=== PATIENT | male | born 1975 ===

== ENCOUNTER 2017-08-27 14:21 | Inpatient (IN) | payer MEDICARE, OTHER ==
[2017-08-27 14:26] VITALS: BMI 22.8
[2017-08-27 14:27] VITALS: O2SAT 94
--- NOTE | 2017-08-27 14:30 | ED PDOC ---
Arrival/HPI - General Time Seen by Provider: 08/27/17 14:22 Historian: Patient - History of Present Illness Narrative History of Present Illness (Text): 08/27/17 14:20 Rashawn Almeida is a 42 year old male, who presents to the emergency department after being transferred for psych evaluation from another institution. Patient is currently denying any pain and no complaints have been made. Time/Duration: Prior to Arrival Symptom Onset: Sudden Symptom Course: Unchanged Past Medical History - Provider Review Nursing Documentation Reviewed: Yes Family/Social History - Physician Review Nursing Documentation Reviewed: Yes Family/Social History: Unknown Family HX Allergies/Home Meds Allergies/Adverse Reactions: Allergies benztropine [From Cogentin] Allergy (Verified 08/27/17 14:25) RASH haloperidol [From Haldol] Allergy (Verified 08/27/17 14:25) RASH Review of Systems - Review of Systems Constitutional: absent: Fevers Respiratory: absent: SOB, Cough Cardiovascular: absent: Chest Pain Gastrointestinal: absent: Abdominal Pain Neurological: absent: Headache Psychiatric: Other (psych evaluation ) Physical Exam Vital Signs Reviewed: Yes Vital Signs Temp Pulse Resp BP Pulse Ox 08/27/17 14:27 98.1 F 73 18 93/53 L 94 L Temperature: Afebrile Blood Pressure: Hypotensive Pulse: Regular Respiratory Rate: Normal Appearance: Positive for: Well-Appearing, Non-Toxic, Comfortable Pain Distress: None Mental Status: Positive for: Alert and Oriented X 3 - Systems Exam Head: Present: Atraumatic, Normocephalic Respiratory/Chest: Present: Clear to Auscultation, Good Air Exchange. No: Respiratory Distress, Accessory Muscle Use Cardiovascular: Present: Regular Rate and Rhythm, Normal S1, S2. No: Murmurs Abdomen: Present: Normal Bowel Sounds. No: Tenderness, Distention, Peritoneal Signs Neurological: Present: GCS=15, CN II-XII Intact, Speech Normal Skin: Present: Warm, Dry, Normal Color. No: Rashes Psychiatric: Present: Alert, Oriented x 3, Normal Insight, Normal Concentration Medical Decision Making ED Course and Treatment: 08/27/17 14:[address] Guevara from psych who has accepted patient for care and evaluation. - Medication Orders Current Medication Orders: Diphenhydramine HCl (Benadryl) 50 mg IM Q6H PRN PRN Reason: Agitation Diphenhydramine HCl (Benadryl) 50 mg PO Q6H PRN PRN Reason: Agitation Hydroxyzine Pamoate (Vistaril) 25 mg PO Q6H PRN; Protocol PRN Reason: Anxiety Lorazepam (Ativan) 2 mg PO 0000,0600,1200,1800 ANA PRN Reason: Protocol Risperidone (Risperdal Tab) 1 mg PO AMHS ANA PRN Reason: Protocol Trazodone HCl (Desyrel) 50 mg PO HS PRN PRN Reason: Insomnia Ziprasidone (Geodon Inj) 20 mg IM Q6H PRN; Protocol PRN Reason: Agitation Ziprasidone (Geodon Cap) 20 mg PO Q6H PRN; Protocol PRN Reason: Agitation - Scribe Statement The provider has reviewed the documentation as recorded by the Kia Ba Provider Scribe Attestation: All medical record entries made by the Scribe were at my direction and personally dictated by me. I have reviewed the chart and agree that the record accurately reflects my personal performance of the history, physical exam, medical decision making, and the department course for this patient. I have also personally directed, reviewed, and agree with the discharge instructions and disposition. Disposition/Present on Arrival - Present on Arrival Any Indicators Present on Arrival: No - Disposition Have Diagnosis and Disposition been Completed?: Yes Diagnosis: Depression, Schizophrenia Disposition: HOSPITALIZED Disposition Time: 02:00 Isolation: Airborne Condition: STABLE
[2017-08-27] MEDS ORDERED: DiphenhydrAMINE 50 mg/ml Inj IM PRN (17:08)
--- NOTE | 2017-08-27 18:49 | PCM.BM ---
<Anurag Sawyer - Last Filed: 08/27/17 18:49> Treatment Plan Problems - Problems identified on initial assessmt Hopelessness Date Initiated: 08/27/17 Time Initiated: 18:48 Assessment reference: NA Status: Active Priority: 1 Ineffective Coping Date Initiated: 08/27/17 Time Initiated: 18:48 Assessment reference: NA Status: Active Priority: 2 Auditory Hallucinations Date Initiated: 08/27/17 Time Initiated: 18:48 Assessment reference: NA Status: Active Priority: 3 High Risk: Suicide Date Initiated: 08/27/17 Time Initiated: 18:49 Assessment reference: NA Status: Active Priority: 4 Knowledge Deficit: Alcohol Use Date Initiated: 08/27/17 Time Initiated: 18:49 Assessment reference: NA Status: Active Priority: 5 Treatment assets and liabiliti Patient Assests: cooperative, ADL independent Patient Liabilities: substance abuse - Milieu Protocol Maintain good personal hygiene: daily Encourage regular showers, daily Remind patient to perform daily oral care Maintain personal safety: every shift Educate patient to report safety concerns to staff, every shift Monitor environment for contraband/sharps Medication safety: Monitor for expected outcome, potential side effects: every shift, Assess barriers to learning: every shift, Assess readiness for medication education: every shift Discharge/Continuing Care - Education Needs Education Needs: Patient Medication, Patient Diagnosis/Disease Process, Patient Coping Skills, Patient Aftercare Safety Plan - Discharge Discharge Criteria: Tolerates medication w/o severe side effects, Free of Suicidal thoughts, Normal sleep pattern, Ability to care for self, No longer exhibiting s/s of withdrawal, Reduction of target symptoms <Kay Engel - Last Filed: 08/28/17 08:37> - Diagnosis (1) Polysubstance abuse Status: Acute Interventions: 08/28/17 08:41 Monitoring withdrawal symptoms Medical detoxification Pharmacotherapy for alcohol/benzos/opioid dependence Maintaining sobriety Relapse prevention Possible rehabilitation Motivational interviewing 12-step programs: AA meetings (2) Antisocial personality disorder Status: Acute Interventions: 08/28/17 08:41 Psychoeducation Psychopharmacology/adjustment of medications as needed/ monitoring possible side effects Evaluate pt on daily basis Compliance with medications and follow up appointments Suicide and homicide risk assessment and prevention, coping strategies, safety plan Relapse prevention Family involvement As outpatient: Transference-focused psychotherapy/dialectical behavioral therapy /schema therapy Mindfulness skills (3) Schizophrenia Status: Acute Interventions: 08/28/17 08:41 Psychoeducation/psychotherapy Psychopharmacology/adjustment of medications as needed/ monitoring possible side effects Evaluate pt on daily basis Compliance with medications and follow up appointments Long acting medication if pt is noncompliant with pill form Suicide and homicide risk assessment and prevention, coping strategies, safety plan Relapse prevention Reduction of symptoms Improve functional status Possible assertive community treatment Cognitive behavioral therapy Family involvement Possible social skill training as outpatient <Liz Airza - Last Filed: 08/29/17 14:31>
[2017-08-28 06:46] VITALS: TEMP 97.6
[2017-08-28 08:57] LABS: CHOLESTEROL 179 mg/dL (130-200); GLUCOSE,FASTING 93 mg/dL (65-110)
[2017-08-28 09:15] LABS: FREE T4 0.71 ng/dL (0.78-2.19)
[2017-08-28 09:29] LABS: THYROID STIMULATING HORMONE 1.13 mIU/mL (0.46-4.68)
[2017-08-28 11:30] LABS: BASO # 0.02 K/mm3 (0.0-2.0); BASO % 0.4 % (0.0-3.0); EOS # 0.1 (0.0-0.7); EOS % 1.9 % (1.5-5.0); GRAN # 3.16 (1.4-6.5); GRAN % 58.7 % (50.0-68.0); HEMATOCRIT 43.7 % (42.0-52.0); LYMPH # 1.6 (1.2-3.4); LYMPH % 28.8 % (22.0-35.0); MEAN CELL VOLUME 93.2 fl (80.0-105.0); MEAN CORPUSCULAR HEMOGLOBIN 32.2 pg (25.0-35.0); MEAN CORPUSCULAR HGB CONC 34.6 g/dl (31.0-37.0); MEAN PLATELET VOLUME 9.9 fl (7.0-11.0); MONO # 0.6 (0.1-0.6); MONO % 10.2 % (1.0-6.0); RED CELL DISTRIBUTION WIDTH 12.9 % (11.5-14.5); WHITE BLOOD COUNT 5.4 10^3/ul (4.5-11.0)
[2017-08-28 11:37] LABS: ALB/GLOB RATIO 1.7 (1.1-1.8); ALKALINE PHOSPHATASE 68 U/L (38-126); ALT/SGPT 41 U/L (7-56); AST/SGOT 41 U/L (17-59); BILIRUBIN,TOTAL 1.2 mg/dL (0.2-1.3); BLOOD UREA NITROGEN 16 mg/dL (7-21); CALCIUM 9.4 mg/dL (8.4-10.5); CARBON DIOXIDE 26 mmol/L (21-33); CHLORIDE 102 mmol/L (98-107); GFR AFRICAN-AMERICAN > 60; GLUCOSE,RANDOM 93 mg/dL (70-110); PHOSPHOROUS 3.3 mg/dL (2.5-4.5); POTASSIUM 4.1 mmol/L (3.6-5.0); SODIUM 137 mmol/L (132-148); TOTAL PROTEIN 6.7 g/dL (5.8-8.3)
--- NOTE | 2017-08-28 11:46 | CP.PCM.CON ---
<Ketan Gil - Last Filed: 08/28/17 14:49> History of Present Illness - History of Present Illness History of Present Illness: 42 year old male with Past medical history of schizophrenia who presented to the ED after being transferred from another institution. Patient is here for a psychiatric evaluation. The patient states he was initially brought to the hospital because he was drinking alcohol and was hearing voices. He doesn't recall anything else and he is currently very sleepy, unable to obtain more detailed history. He denies any CP, SOB, abdominal pain, change in vision, fever , nausea, vomiting, or any other complaints. Past Medical History: Schizophrenia, diagnosed over 10 years ago Past Surgery: none Significant Allergies: cogentin, haldol (patient states he gets paralyzed) Social: admits to occasional heavy alcohol use, Heavy Smoker > 10 Cigarettes Daily, illicit drug use in the past Family Hx; none significant Medications: zyprexa 5mg, zyprexa 2mg Review of Systems - Constitutional Constitutional: absent: Anorexia, Chills, Excessive Sweating, Fever, Headache, Sleep Apnea - EENT Eyes: absent: Blurred Vision, Change in Vision Ears: absent: Decreased Hearing, Ear Discharge, Disequilibrium, Dizziness Nose/Mouth/Throat: absent: Nasal Congestion, Nasal Discharge, Dry Mouth, Dysphagia, Sore Throat - Cardiovascular Cardiovascular: absent: Chest Pain, Dyspnea - Respiratory Respiratory: absent: Dyspnea, Chest Congestion - Gastrointestinal Gastrointestinal: absent: Abdominal Pain - Genitourinary Genitourinary: absent: Difficulty Urinating - Musculoskeletal Musculoskeletal: absent: Arthralgias, Muscle Weakness, Numbness, Tingling - Integumentary Integumentary: absent: Lesions - Neurological Neurological: Abnormal Hearing. absent: Disequilibrium, Dizziness, Numbness, Tingling, Tremor, Weakness - Psychiatric Psychiatric: absent: Depression - Endocrine Endocrine: absent: Excessive Sweating Past Patient History - Past Social History Smoking Status: Heavy Smoker > 10 Cigarettes Daily - PSYCHIATRIC Hx Substance Use: Yes Meds Allergies/Adverse Reactions: Allergies Allergy/AdvReac Type Severity Reaction Status Date / Time benztropine [From Cogentin] Allergy RASH Verified 08/27/17 14:25 haloperidol [From Haldol] Allergy RASH Verified 08/27/17 14:25 - Medications Medications: Current Medications Diphenhydramine HCl (Benadryl) 50 mg IM Q6H PRN PRN Reason: Agitation Diphenhydramine HCl (Benadryl) 50 mg PO Q6H PRN PRN Reason: Agitation Hydroxyzine Pamoate (Vistaril) 25 mg PO Q6H PRN; Protocol PRN Reason: Anxiety Lorazepam (Ativan) 2 mg PO 0000,0600,1200,1800 ANA PRN Reason: Protocol Last Admin: 08/28/17 07:02 Dose: 2 mg Risperidone (Risperdal Tab) 1 mg PO AMHS ANA PRN Reason: Protocol Last Admin: 08/28/17 09:38 Dose: 1 mg Trazodone HCl (Desyrel) 50 mg PO HS PRN PRN Reason: Insomnia Ziprasidone (Geodon Inj) 20 mg IM Q6H PRN; Protocol PRN Reason: Agitation Ziprasidone (Geodon Cap) 20 mg PO Q6H PRN; Protocol PRN Reason: Agitation Physical Exam - Constitutional Appears: Non-toxic, No Acute Distress - Head Exam Head Exam: ATRAUMATIC, NORMAL INSPECTION, NORMOCEPHALIC - Eye Exam Eye Exam: EOMI, Normal appearance, PERRL Pupil Exam: NORMAL ACCOMODATION, PERRL - ENT Exam ENT Exam: Mucous Membranes Dry - Neck Exam Neck exam: Positive for: Normal Inspection. Negative for: Lymphadenopathy - Respiratory Exam Respiratory Exam: Clear to Auscultation Bilateral, NORMAL BREATHING PATTERN - Cardiovascular Exam Cardiovascular Exam: REGULAR RHYTHM, +S1, +S2 - GI/Abdominal Exam GI & Abdominal Exam: Normal Bowel Sounds. absent: Distended, Rigid, Tenderness - Extremities Exam Extremities exam: Positive for: full ROM, normal inspection, pedal pulses present - Back Exam Back exam: NORMAL INSPECTION - Neurological Exam Neurological exam: Oriented x3 Additional comments: Lethargic, sleepy - Skin Skin Exam: Normal Color, Warm Results - Vital Signs Recent Vital Signs: Last Vital Signs Temp 97.6 F 08/28/17 06:45 Pulse 71 08/28/17 06:45 Resp 20 08/28/17 06:45 BP 108/61 08/28/17 06:45 Pulse Ox 94 L 08/27/17 16:30 - Labs Result Diagrams: 08/28/17 07:30 08/28/17 07:30 Labs: Laboratory Results - last 24 hr 08/28/17 08/28/17 08/28/17 07:30 07:30 08:15 WBC 5.4 RBC 4.69 Hgb 15.1 Hct 43.7 MCV 93.2 MCH 32.2 MCHC 34.6 RDW 12.9 Plt Count 215 MPV 9.9 Gran % 58.7 Lymph % (Auto) 28.8 Fallon % (Auto) 10.2 H Eos % (Auto) 1.9 Baso % (Auto) 0.4 Gran # 3.16 Lymph # 1.6 Fallon # 0.6 Eos # 0.1 Baso # 0.02 Sodium 137 Potassium 4.1 Chloride 102 Carbon Dioxide 26 Anion Gap 13 BUN 16 Creatinine 1.1 Est GFR ( Amer) > 60 Est GFR (Non-Af Amer) > 60 Random Glucose 93 Fasting Glucose 93 Calcium 9.4 Phosphorus 3.3 Magnesium 2.0 Total Bilirubin 1.2 AST 41 ALT 41 Alkaline Phosphatase 68 Total Protein 6.7 Albumin 4.2 Globulin 2.5 Albumin/Globulin Ratio 1.7 Triglycerides 102 Cholesterol 179 LDL Cholesterol Direct 110 HDL Cholesterol 55 Free T4 TSH 3rd Generation 08/28/17 08:15 WBC RBC Hgb Hct MCV MCH MCHC RDW Plt Count MPV Gran % Lymph % (Auto) Fallon % (Auto) Eos % (Auto) Baso % (Auto) Gran # Lymph # Fallon # Eos # Baso # Sodium Potassium Chloride Carbon Dioxide Anion Gap BUN Creatinine Est GFR ( Amer) Est GFR (Non-Af Amer) Random Glucose Fasting Glucose Calcium Phosphorus Magnesium Total Bilirubin AST ALT Alkaline Phosphatase Total Protein Albumin Globulin Albumin/Globulin Ratio Triglycerides Cholesterol LDL Cholesterol Direct HDL Cholesterol Free T4 0.71 L TSH 3rd Generation 1.13 Assessment & Plan - Assessment and Plan (Free Text) Assessment: 42 year old male with Past medical history of schizophrenia who presented to the ED after being transferred from another institution. Patient is here for a psychiatric evaluation. The patient states he was initially brought to the hospital because he was drinking alcohol and was hearing voices. He is being evaluated by psychiatry and consulted by medicine. Plan: 1. Schizophrenia-chronic -will defer to psychiatry -currently on geodon, trazadone, ativan, diphenhydramine, hydroxyzine -Psych: Dr. Villanueva 2. Recent Alcohol abuse -CBC, BMP ordered : no electrolyte abnormalities present -[facility] protocol -Alcohol counseling offered -monitor labs 3. GI/DVT prophylaxis -Pantoprazole -Heparin Patient can be signed off to psychiatry, discussed with the attending Dr. dawson <Vicki Dawson - Last Filed: 08/28/17 17:27> Meds - Medications Medications: Current Medications Diphenhydramine HCl (Benadryl) 50 mg IM Q6H PRN PRN Reason: Agitation Diphenhydramine HCl (Benadryl) 50 mg PO Q6H PRN PRN Reason: Agitation Folic Acid (Folic Acid) 1 mg PO DAILY ANA Heparin Sodium (Porcine) (Heparin) 5,000 units SC Q12 ANA PRN Reason: Protocol Hydroxyzine Pamoate (Vistaril) 25 mg PO Q6H PRN; Protocol PRN Reason: Anxiety Lorazepam (Ativan) 2 mg PO 0000,0600,1200,1800 ANA PRN Reason: Protocol Last Admin: 08/28/17 07:02 Dose: 2 mg Multivitamins/Minerals (Therapeutic-M Tab) 1 tab PO DAILY ANA Olanzapine (Zyprexa Zydis) 5 mg PO HS ANA PRN Reason: Protocol Pantoprazole Sodium (Protonix Ec Tab) 40 mg PO 0600 ANA Thiamine HCl (Vitamin B1 Tab) 100 mg PO DAILY ANA Trazodone HCl (Desyrel) 50 mg PO HS PRN PRN Reason: Insomnia Ziprasidone (Geodon Inj) 20 mg IM Q6H PRN; Protocol PRN Reason: Agitation Ziprasidone (Geodon Cap) 20 mg PO Q6H PRN; Protocol PRN Reason: Agitation Results - Vital Signs Recent Vital Signs: Last Vital Signs Temp 97.6 F 08/28/17 06:45 Pulse 75 08/28/17 16:00 Resp 20 08/28/17 06:45 BP 111/68 08/28/17 16:00 Pulse Ox 94 L 08/27/17 16:30 - Labs Result Diagrams: 08/28/17 07:30 08/28/17 07:30 Labs: Laboratory Results - last 24 hr 08/28/17 08/28/17 08/28/17 07:30 07:30 08:15 WBC 5.4 RBC 4.69 Hgb 15.1 Hct 43.7 MCV 93.2 MCH 32.2 MCHC 34.6 RDW 12.9 Plt Count 215 MPV 9.9 Gran % 58.7 Lymph % (Auto) 28.8 Fallon % (Auto) 10.2 H Eos % (Auto) 1.9 Baso % (Auto) 0.4 Gran # 3.16 Lymph # 1.6 Fallon # 0.6 Eos # 0.1 Baso # 0.02 Sodium 137 Potassium 4.1 Chloride 102 Carbon Dioxide 26 Anion Gap 13 BUN 16 Creatinine 1.1 Est GFR ( Amer) > 60 Est GFR (Non-Af Amer) > 60 Random Glucose 93 Fasting Glucose 93 Calcium 9.4 Phosphorus 3.3 Magnesium 2.0 Total Bilirubin 1.2 AST 41 ALT 41 Alkaline Phosphatase 68 Total Protein 6.7 Albumin 4.2 Globulin 2.5 Albumin/Globulin Ratio 1.7 Triglycerides 102 Cholesterol 179 LDL Cholesterol Direct 110 HDL Cholesterol 55 Free T4 TSH 3rd Generation 08/28/17 08:15 WBC RBC Hgb Hct MCV MCH MCHC RDW Plt Count MPV Gran % Lymph % (Auto) Fallon % (Auto) Eos % (Auto) Baso % (Auto) Gran # Lymph # Fallon # Eos # Baso # Sodium Potassium Chloride Carbon Dioxide Anion Gap BUN Creatinine Est GFR ( Amer) Est GFR (Non-Af Amer) Random Glucose Fasting Glucose Calcium Phosphorus Magnesium Total Bilirubin AST ALT Alkaline Phosphatase Total Protein Albumin Globulin Albumin/Globulin Ratio Triglycerides Cholesterol LDL Cholesterol Direct HDL Cholesterol Free T4 0.71 L TSH 3rd Generation 1.13 Attending/Attestation - Attestation I have personally seen and examined this patient.: Yes I have fully participated in the care of the patient.: Yes I have reviewed all pertinent clinical information: Yes Notes (Text): I have seen and examined the patient at bedside. Agree with the above note with the following additions/ exceptions: Briefly this is 42 year old male with history of schizophrenia and recent alcohol use who presented for evaluation of auditory hallucinations. Patient is talking minimally and in a very low tone. Denies any complaints. Reviewed blood work which is within normal limits. Alcohol cessation counselling was started however I felt that patient was not paying attention. Thanks for providing us the opportunity to participate in the patient care. Will sign off at this time. Please reconsult susann. Vicki Dawson
--- NOTE | 2017-08-28 16:59 | PCM.PSYCH ---
Initial Psychiatric Evaluation - Initial Psychiatric Evaluation Type of Admission: Voluntary Legal Status: Capacity (patient has capacity to sign consent for treatment) Chief Complaint (in patient's own words): "I do not care about anything" Patient's Reaction to Hospitalization: patient was transferred from [facility] for evaluation of psychotic symptoms, command type hallucinations, suicidal ideation with a plan to jump off the bridge,patient is substance abuser, cocaine use disorder, was noncompliant with the medications. History of Present Illness and Precipitating Events: Shortly patient is 50 year old male, reported history of schizophrenia , patient came to the [facility] complaining of auditory hallucinations, command type, telling patient to jump off the bridge, patient also admitted to use cocaine, was not compliant with the psychotropic medication for past 2 months, was not able to contract for safety. Due to the severity of patients symptoms and, suicidal ideation, disorganized behavior, pt could not be maintained as outpatient setting, needs further evaluation and stabilization in acute psychiatric unit. Stress: pt lost his job Personal hygiene poor, ADLS: acceptable. Psychosis: patient reported to hear voices, type telling him to kill himself by jumping off the bridge. Depression: patient reported being depressed, hopeless helpless, worthless and guilty. Suicidal thoughts/plans/intent: pt contracted for safety Trena: irritability is very obvious. pt presented to be withdrawn, sedated with psychomotor retardation. Substance abuse: patient has alcohol use disorder, alcohol level was more than 200 at [facility], urine drug screen was positive for cocaine. Alcohol Smoking: counseling provided, nicotine patch offered Smoking Cessation Counseling: The patient was counseled as to the multiple risks to his/her health from continued use of tobacco products. It was explained that continuing to smoke may lead to multiple short and terminal carman negative health consequences, including but not limited to mouth/esophageal /lung cancer, COPD, and heart disease. He/she states he/she understands these risks, and also understands the options and resources available to him/her to help him/her stop smoking. Nicotine replacement therapy, local hotlines, and local resources were discussed as viable options for helping him/her stop his/her tobacco use. The total time spent counseling the patient regarding tobacco cessation was 3 minutes Access to the weapons: as per [facility] report pt said "Having a licence for a gun", when was asked about it, pt seems to be surprised, said "me? gun?, no I don't have any guns". Past psychiatric h/o: , medication noncompliance, terroristic threats, possible antisocial traits. pt was on zyprexa 10mg po bid, zoloft 200mg daily, trazodone 50mg hs. prior h/o incarcerations, strong antisocial traits. Hospitalization: Suicidal attempts: self reported history of suicidal attempts by laceration of wrist, but no old scars for noted at this time. Medical h/o: Family h/o: grandmother has h/o mental illness, male cousin committed suicide by hanging. Social h/o: Treatment goals: Labs: 08/28/17 08/28/17 08:15 08:15 Fasting Glucose 93 Triglycerides 102 Cholesterol 179 LDL Cholesterol Direct 110 HDL Cholesterol 55 Free T4 0.71 L TSH 3rd Generation 1.13 Vital Signs Temp Pulse Resp BP Pulse Ox 08/28/17 06:45 97.6 F 71 20 108/61 08/27/17 16:30 98.3 F 75 18 93/60 L 94 L 08/27/17 14:27 98.1 F 73 18 93/53 L 94 L Review of Systems: medical consult called. MSE: Pt deemed to be unreliable historian, some psychomotor retardation, pt looks stated age, good poor hygiene, good ADLs, speech was: underproductive, yes or no answers only, eye contact: pt was looking on the floor, mood described: "I don't know" , affect:flat , thought process: concrete, thought content: pt contracted for safety, prior to come to the hospital pt verbalized SI/ HI, pt reported auditory hallucinations, denied paranoid ideation, insight/judgment: poor, impulsed are unpredictable. as per staff pt is withdrawn, not attending groups Impression: s per history patient has schizophrenia rule out schizoaffective disorder Alcohol use disorder cocaine use disorder Treatment plan: Milieu/structure/supportive therapy Medical consult was called meds for possible alcohol withdrawals (atvan scheduled and prn, mvi, thiamine and folic acid) trazodone 50 mg at the nighttime as needed for insomnia as well as depression Risperdal will be d/c zyprexa will be resumed (pt willing to take this medication only) vistaril and benadryl for possible EPS PRN meds (Geodon and Benadryl for agitation) consultation for discharge plan and social issues Family involvement Follow up on labs Will monitor closely SW evaluation for d/c planning, pt wants to go to rehab Pt was educated about risk/benefits and alternatives of medications, coping strategies (safety plan, suicide prevention), relapse prevention, importance of follow up with psychiatrist and therapist, stay away from drugs/alcohol/smoking Current Medications: Active Medications Generic Name Dose Route Start Last Admin Trade Name Freq PRN Reason Stop Dose Admin Diphenhydramine HCl 50 mg 08/27/17 17:08 Benadryl IM Q6H PRN Agitation Diphenhydramine HCl 50 mg 08/27/17 17:08 Benadryl PO Q6H PRN Agitation Hydroxyzine Pamoate 25 mg 08/27/17 16:18 Vistaril PO Q6H PRN Anxiety Protocol Lorazepam 2 mg 08/27/17 18:00 08/28/17 07:02 Ativan PO 2 mg 0000,0600,1200,1800 ANA Administration Protocol Risperidone 1 mg 08/27/17 22:00 08/28/17 09:38 Risperdal Tab PO 1 mg AMHS ANA Administration Protocol Trazodone HCl 50 mg 08/27/17 16:18 Desyrel PO HS PRN Insomnia Ziprasidone 20 mg 08/27/17 17:08 Geodon Inj IM Q6H PRN Agitation Protocol Ziprasidone 20 mg 08/27/17 17:08 Geodon Cap PO Q6H PRN Agitation Protocol Past Psychiatric History - Past Psychiatric History Pertinent Medical Hx (Current Medical&Sleep Prob, Allergies): Allergies Allergy/AdvReac Type Severity Reaction Status Date / Time benztropine [From Cogentin] Allergy RASH Verified 08/27/17 14:25 haloperidol [From Haldol] Allergy RASH Verified 08/27/17 14:25 DSM 5 DX - Recommended/Plan of Treatment Projected ELOS: 7days Prognosis: guarded Discharge Plan and Discharge Criteria: Pt will be not depressed or manic, will be more hopeful, will be not psychotic or anxious, will be not having thoughts of harming self or others, will be tolerating medications well, will not have major side effects, will be able to function, will not pose threat to self or others.
[2017-08-28] MEDS ORDERED: OLANZapine 5 mg Disintegrating Tab PO SCH (22:00)
[2017-08-29] MEDS: Pantoprazole 40 mg EC Tab PO SCH (06:48)
[2017-08-29 06:59] VITALS: RESP 18
[2017-08-29] MEDS: Multivitamin With Minerals Tab PO SCH (08:28)
--- NOTE | 2017-08-29 16:05 | PCM.PYCHPN ---
Psychiatric Progress Note - Psychiatric Progress Note Patient seen today, length of contact: 30min Patient Chief Complaint: "I want to go to the rehab" Diagnostic Results: 08/28/17 07:30 08/28/17 07:30 Lab Results 08/28/17 08:15: RPR Nonreactive 08/28/17 08:15: Free T4 0.71 L, TSH 3rd Generation 1.13 08/28/17 08:15: Fasting Glucose 93, Triglycerides 102, Cholesterol 179, LDL Cholesterol Direct 110, HDL Cholesterol 55 08/28/17 07:30: Sodium 137, Potassium 4.1, Chloride 102, Carbon Dioxide 26, Anion Gap 13, BUN 16, Creatinine 1.1, Est GFR ( Amer) > 60, Est GFR (Non- Af Amer) > 60, Random Glucose 93, Calcium 9.4, Phosphorus 3.3, Magnesium 2.0, Total Bilirubin 1.2, AST 41, ALT 41, Alkaline Phosphatase 68, Total Protein 6.7 , Albumin 4.2, Globulin 2.5, Albumin/Globulin Ratio 1.7 08/28/17 07:30: WBC 5.4, RBC 4.69, Hgb 15.1, Hct 43.7, MCV 93.2, MCH 32.2, MCHC 34.6, RDW 12.9, Plt Count 215, MPV 9.9, Gran % 58.7, Lymph % (Auto) 28.8, [place] % (Auto) 10.2 H, Eos % (Auto) 1.9, Baso % (Auto) 0.4, Gran # 3.16, Lymph # 1.6, [place] # 0.6, Eos # 0.1, Baso # 0.02 Vital Signs Temp Pulse Resp BP Pulse Ox 08/29/17 06:58 67 18 110/67 08/28/17 16:00 75 111/68 08/28/17 06:45 97.6 F 71 20 108/61 08/27/17 16:30 98.3 F 75 18 93/60 L 94 L 08/27/17 14:27 98.1 F 73 18 93/53 L 94 L DSM 5 Symptoms Update: Shortly patient is 50 year old male, reported history of schizophrenia , patient came to the [facility] complaining of auditory hallucinations, command type, telling patient to jump off the bridge, patient also admitted to use cocaine, was not compliant with the psychotropic medication for past 2 months, was not able to contract for safety. Personal hygiene poor, ADLS: acceptable. Psychosis: patient reported to hear voices, type telling him to kill himself by jumping off the bridge. pt is obviously has psychomotor retardation, very poor historian, was mumbling something. patient reported being depressed, hopeless helpless, worthless and guilty. as per staff pt wondering at the unit like empty minded, disorganized. pt asked staff to page this copywriter, when this copywriter asked pt if he wants to talk, pt said "no I want to talk WITH the phone". MSE: Pt deemed to be unreliable historian, some psychomotor retardation, pt looks stated age, good poor hygiene, good ADLs, speech was: underproductive, yes or no answers only, eye contact: pt was looking on the floor, mood described: "I don't know" , affect:flat , thought process: concrete, thought content: pt contracted for safety, prior to come to the hospital pt verbalized SI/ HI, pt reported auditory hallucinations, denied paranoid ideation, insight/judgment: poor, impulsed are unpredictable. Impression: s per history patient has schizophrenia rule out schizoaffective disorder Alcohol use disorder cocaine use disorder Treatment plan: Milieu/structure/supportive therapy Medical consult was called meds for possible alcohol withdrawals (atvan scheduled and prn, mvi, thiamine and folic acid) trazodone 50 mg at the nighttime as needed for insomnia as well as depression zyprexa will be increased 5mg amhs for psychosis vistaril and benadryl for possible EPS PRN meds (Geodon and Benadryl for agitation) consultation for discharge plan and social issues pt submitted 48hr notice will call [facility] Family involvement Follow up on labs Will monitor closely evaluation for d/c planning, pt wants to go to rehab Pt was educated about risk/benefits and alternatives of medications, coping strategies (safety plan, suicide prevention), relapse prevention, importance of follow up with psychiatrist and therapist, stay away from drugs/alcohol/smoking Medication Change: Yes (zyprexa increaed) Medical Record Reviewed: Yes Consults ordered or reviewed: medical consult appreciated Goal/Treatment Plan - Goal/Treatment Plan Need for Continued Stay: Remain at risks for inpatient hospitalization, Severe depression anxiety, Discharge may exacerbated symptoms, Severe functional impairment Estimated Date of D/C: 09/03/17
[2017-08-29] MEDS: OLANZapine 5 mg Disintegrating Tab PO SCH (21:23)
[2017-08-30] MEDS: Pantoprazole 40 mg EC Tab PO SCH (05:49)
[2017-08-30] MEDS: Multivitamin With Minerals Tab PO SCH (08:31)
[2017-08-30] MEDS: OLANZapine 5 mg Disintegrating Tab PO SCH ×2 (10:00→21:06)
--- NOTE | 2017-08-30 10:58 | CP.PCM.CON ---
<Ketan Gil - Last Filed: 08/30/17 13:39> History of Present Illness - History of Present Illness History of Present Illness: 42 year old male with Past medical history of schizophrenia who intially presented to the ED after being transferred from another institution. Patient is here for a psychiatric evaluation. The patient states he was initially brought to the hospital because he was drinking alcohol and was hearing voices. He didn't recall anything else. He is being seen by medicine due to the incident of sexual intercourse with a fellow patient in psychiatry. Patient was seen but currently very drowsy and difficult to obtain a detailed account of what happened. Patient denies sexual intercourse and says he just kissed the other patient. He denies any CP, SOB, abdominal pain, change in vision, fever, nausea, vomiting, or any other complaints. Past Medical History: Schizophrenia, diagnosed over 10 years ago Past Surgery: none Significant Allergies: cogentin, haldol (patient states he gets paralyzed) Social: admits to occasional heavy alcohol use, Heavy Smoker > 10 Cigarettes Daily, illicit drug use in the past Family Hx; none significant Medications: zyprexa 5mg, zyprexa 2mg at home Review of Systems - Constitutional Constitutional: absent: Anorexia, Chills, Fever - EENT Eyes: absent: Blurred Vision, Change in Vision Ears: absent: Abnormal Hearing Nose/Mouth/Throat: absent: Nasal Congestion, Sore Throat - Cardiovascular Cardiovascular: absent: Chest Pain, Dyspnea - Respiratory Respiratory: absent: Cough, Dyspnea, Dyspnea on Exertion, Chest Congestion - Gastrointestinal Gastrointestinal: absent: Diarrhea, Loose Stools, Nausea, Vomiting - Genitourinary Genitourinary: absent: Change in Urinary Stream, Difficulty Urinating, Dysuria - Integumentary Integumentary: absent: Pruritus, Rash, Sores - Neurological Neurological: absent: Abnormal Hearing, Numbness, Radicular Pain, Tingling, Weakness Past Patient History - Past Social History Smoking Status: Heavy Smoker > 10 Cigarettes Daily - PSYCHIATRIC Hx Substance Use: Yes Meds Allergies/Adverse Reactions: Allergies Allergy/AdvReac Type Severity Reaction Status Date / Time benztropine [From Cogentin] Allergy RASH Verified 08/27/17 14:25 haloperidol [From Haldol] Allergy RASH Verified 08/27/17 14:25 - Medications Medications: Current Medications Diphenhydramine HCl (Benadryl) 50 mg IM Q6H PRN PRN Reason: Agitation Diphenhydramine HCl (Benadryl) 50 mg PO Q6H PRN PRN Reason: Agitation Last Admin: 08/29/17 03:15 Dose: 50 mg Folic Acid (Folic Acid) 1 mg PO DAILY [facility] Last Admin: 08/30/17 08:31 Dose: 1 mg Heparin Sodium (Porcine) (Heparin) 5,000 units SC Q12 [facility] PRN Reason: Protocol Last Admin: 08/29/17 17:04 Dose: Not Given Hydroxyzine Pamoate (Vistaril) 25 mg PO Q6H PRN; Protocol PRN Reason: Anxiety Lorazepam (Ativan) 2 mg PO TID [facility] PRN Reason: Protocol Last Admin: 08/30/17 08:31 Dose: 2 mg Multivitamins/Minerals (Therapeutic-M Tab) 1 tab PO DAILY [facility] Last Admin: 08/30/17 08:31 Dose: 1 tab Nicotine (Nicoderm Cq) 1 patch TD DAILY [facility] Last Admin: 08/30/17 08:30 Dose: 1 patch Olanzapine (Zyprexa Zydis) 5 mg PO AMHS [facility] PRN Reason: Protocol Last Admin: 08/29/17 21:23 Dose: 5 mg Pantoprazole Sodium (Protonix Ec Tab) 40 mg PO 0600 [facility] Last Admin: 08/30/17 05:49 Dose: 40 mg Thiamine HCl (Vitamin B1 Tab) 100 mg PO DAILY [facility] Last Admin: 08/30/17 08:30 Dose: 100 mg Trazodone HCl (Desyrel) 50 mg PO HS PRN PRN Reason: Insomnia Ziprasidone (Geodon Inj) 20 mg IM Q6H PRN; Protocol PRN Reason: Agitation Ziprasidone (Geodon Cap) 20 mg PO Q6H PRN; Protocol PRN Reason: Agitation Physical Exam - Constitutional Appears: No Acute Distress Additional comments: drowsy - Head Exam Head Exam: ATRAUMATIC, NORMAL INSPECTION, NORMOCEPHALIC - Eye Exam Eye Exam: EOMI, Normal appearance, PERRL Pupil Exam: NORMAL ACCOMODATION, PERRL - ENT Exam ENT Exam: Normal Exam - Neck Exam Neck exam: Positive for: Normal Inspection. Negative for: Lymphadenopathy - Respiratory Exam Respiratory Exam: Clear to Auscultation Bilateral, NORMAL BREATHING PATTERN - Cardiovascular Exam Cardiovascular Exam: REGULAR RHYTHM, +S1, +S2 - GI/Abdominal Exam GI & Abdominal Exam: Normal Bowel Sounds. absent: Guarding, Soft - Extremities Exam Extremities exam: Positive for: normal inspection, pedal pulses present - Neurological Exam Neurological exam: Oriented x3 - Psychiatric Exam Psychiatric exam: Flat Affect - Skin Skin Exam: Normal Color, Warm Results - Vital Signs Recent Vital Signs: Last Vital Signs Temp 97.6 F 08/28/17 06:45 Pulse 73 08/29/17 16:00 Resp 18 08/29/17 06:58 BP 116/75 08/29/17 16:00 Pulse Ox 94 L 08/27/17 16:30 - Labs Result Diagrams: 08/28/17 07:30 08/28/17 07:30 Assessment & Plan - Assessment and Plan (Free Text) Assessment: 42 year old male with Past medical history of schizophrenia who presented to the ED after being transferred from another institution. Patient is here for a psychiatric evaluation. The patient states he was initially brought to the hospital because he was drinking alcohol and was hearing voices. He is being evaluated by psychiatry and consulted by medicine due to incidence of sexual intercourse with fellow patient. Plan: 1. Schizophrenia-chronic -will defer to psychiatry -currently on geodon, trazadone, ativan, diphenhydramine, hydroxyzine , zyprexa -Psych: Dr. Villanueva 2. Sexual [place] with fellow patient -Hep panel ordered and negative -HIV testing ordered 3. Recent Alcohol abuse -CBC, BMP ordered : no electrolyte abnormalities present -[facility] protocol -Alcohol counseling offered -continue to monitor labs 4. GI/DVT prophylaxis -Pantoprazole -Heparin <Vicki Song - Last Filed: 08/30/17 15:10> Meds - Medications Medications: Current Medications Diphenhydramine HCl (Benadryl) 50 mg IM Q6H PRN PRN Reason: Agitation Diphenhydramine HCl (Benadryl) 50 mg PO Q6H PRN PRN Reason: Agitation Last Admin: 08/29/17 03:15 Dose: 50 mg Folic Acid (Folic Acid) 1 mg PO DAILY [facility] Last Admin: 08/30/17 08:31 Dose: 1 mg Heparin Sodium (Porcine) (Heparin) 5,000 units SC Q12 [facility] PRN Reason: Protocol Last Admin: 08/29/17 17:04 Dose: Not Given Hydroxyzine Pamoate (Vistaril) 25 mg PO Q6H PRN; Protocol PRN Reason: Anxiety Lorazepam (Ativan) 2 mg PO TID [facility] PRN Reason: Protocol Last Admin: 08/30/17 13:39 Dose: Not Given Multivitamins/Minerals (Therapeutic-M Tab) 1 tab PO DAILY [facility] Last Admin: 08/30/17 08:31 Dose: 1 tab Nicotine (Nicoderm Cq) 1 patch TD DAILY [facility] Last Admin: 08/30/17 08:30 Dose: 1 patch Olanzapine (Zyprexa Zydis) 5 mg PO AMHS [facility] PRN Reason: Protocol Last Admin: 08/29/17 21:23 Dose: 5 mg Pantoprazole Sodium (Protonix Ec Tab) 40 mg PO 0600 [facility] Last Admin: 08/30/17 05:49 Dose: 40 mg Thiamine HCl (Vitamin B1 Tab) 100 mg PO DAILY [facility] Last Admin: 08/30/17 08:30 Dose: 100 mg Trazodone HCl (Desyrel) 50 mg PO HS PRN PRN Reason: Insomnia Ziprasidone (Geodon Inj) 20 mg IM Q6H PRN; Protocol PRN Reason: Agitation Ziprasidone (Geodon Cap) 20 mg PO Q6H PRN; Protocol PRN Reason: Agitation Results - Vital Signs Recent Vital Signs: Last Vital Signs Temp 97.6 F 08/28/17 06:45 Pulse 73 08/29/17 16:00 Resp 18 08/29/17 06:58 BP 116/75 08/29/17 16:00 Pulse Ox 94 L 08/27/17 16:30 - Labs Result Diagrams: 08/28/17 07:30 08/28/17 07:30 Labs: Laboratory Results - last 24 hr 08/30/17 09:10 Hepatitis A IgM Ab Negative Hep Bs Antigen Negative Hep B Core IgM Ab Negative Hepatitis C Antibody Negative Attending/Attestation - Attestation I have personally seen and examined this patient.: Yes I have fully participated in the care of the patient.: Yes I have reviewed all pertinent clinical information: Yes Notes (Text): I have seen and examined the patient at bedside. Agree with the above note with the following additions/ exceptions: Briefly this is 42 year old male with history of schizophrenia and recent alcohol use who presented for evaluation of auditory hallucinations. Patient is being managed by psychiatrist. Last night staff found that this patient had sexual intercourse with the fellow female patient although patient denies that. Will order hep panel and HIV. Sexual transmission of HCV can occur although the risk appears to be low. Risk of sexual transmission is higher if the partner is co infected with HIV which is still pending. It was advised to the patient that use of condoms will lower the risk of sexual transmission. Alcohol cessation counselling was provided. Upon discharge patient will follow up with PMD of choice. Dr Vicki Song
--- NOTE | 2017-08-30 16:48 | PCM.PYCHPN ---
Psychiatric Progress Note - Psychiatric Progress Note Patient seen today, length of contact: 30min Patient Chief Complaint: "I am fine" Diagnostic Results: 08/28/17 07:30 08/28/17 07:30 Lab Results 08/28/17 08:15: RPR Nonreactive 08/28/17 08:15: Free T4 0.71 L, TSH 3rd Generation 1.13 08/28/17 08:15: Fasting Glucose 93, Triglycerides 102, Cholesterol 179, LDL Cholesterol Direct 110, HDL Cholesterol 55 08/28/17 07:30: Sodium 137, Potassium 4.1, Chloride 102, Carbon Dioxide 26, Anion Gap 13, BUN 16, Creatinine 1.1, Est GFR ( Amer) > 60, Est GFR (Non- Af Amer) > 60, Random Glucose 93, Calcium 9.4, Phosphorus 3.3, Magnesium 2.0, Total Bilirubin 1.2, AST 41, ALT 41, Alkaline Phosphatase 68, Total Protein 6.7 , Albumin 4.2, Globulin 2.5, Albumin/Globulin Ratio 1.7 08/28/17 07:30: WBC 5.4, RBC 4.69, Hgb 15.1, Hct 43.7, MCV 93.2, MCH 32.2, MCHC 34.6, RDW 12.9, Plt Count 215, MPV 9.9, Gran % 58.7, Lymph % (Auto) 28.8, [place] % (Auto) 10.2 H, Eos % (Auto) 1.9, Baso % (Auto) 0.4, Gran # 3.16, Lymph # 1.6, [place] # 0.6, Eos # 0.1, Baso # 0.02 Vital Signs Temp Pulse Resp BP Pulse Ox 08/29/17 06:58 67 18 110/67 08/28/17 16:00 75 111/68 08/28/17 06:45 97.6 F 71 20 108/61 08/27/17 16:30 98.3 F 75 18 93/60 L 94 L 08/27/17 14:27 98.1 F 73 18 93/53 L 94 L Laboratory Results - last 24 hr 08/30/17 09:10 Hepatitis A IgM Ab Negative Hep Bs Antigen Negative Hep B Core IgM Ab Negative Hepatitis C Antibody Negative DSM 5 Symptoms Update: Shortly patient is 50 year old male, reported history of schizophrenia , patient came [facility] the [facility] complaining of auditory hallucinations, command type, telling patient to jump off the bridge, patient also admitted to use cocaine, was not compliant with the psychotropic medication for past 2 months, was not able to contract for safety. Personal hygiene poor, ADLS: acceptable. Psychosis: patient reported to hear voices, type telling him to kill himself by jumping off the bridge. pt is obviously has psychomotor retardation, very poor historian, was mumbling something. patient reported being depressed, hopeless helpless, worthless and guilty. [facility] was found to be [facility] and at present moment pt is waiting for the bed to be available. 08/29/17 pt was caught into female patient room Benjie Jacob, as per pt they did not have sex but they were just kissing, (but as per RN report pt and other pt did not have underwear on, sexual intercourse cannot be excluded), as per pt it was "consensual", pt was educated about rules and regulations, pt verbalized understanding, Benjie Jacob has Hep C, blood work was ordered, came back negative, pt was educated about importance to follow up with the PMD about possible STD and hep C, pt verbalized understanding. police was involved because other patient Benjie Jacob said it was "not consensual", police interviewed both patients. as per staff pt wondering at the unit like empty minded, disorganized. MSE: Pt deemed to be unreliable historian, some psychomotor retardation, pt looks stated age, good poor hygiene, good ADLs, speech was: underproductive, yes or no answers only, eye contact: pt was looking on the floor, mood described: "I don't know" , affect:flat , thought process: concrete, thought content: pt contracted for safety, prior to come to the hospital pt verbalized SI/ HI, pt reported auditory hallucinations, denied paranoid ideation, insight/judgment: poor, impulsed are unpredictable. Impression: s per history patient has schizophrenia rule out schizoaffective disorder Alcohol use disorder cocaine use disorder Treatment plan: Milieu/structure/supportive therapy Medical consult was called meds for possible alcohol withdrawals (atvan scheduled and prn, mvi, thiamine and folic acid) trazodone 50 mg at the nighttime as needed for insomnia as well as depression zyprexa 5mg amhs for psychosis vistaril and benadryl for possible EPS PRN meds (Geodon and Benadryl for agitation) consultation for discharge plan and social issues pt will be transferred to [facility] as soon as bed available pt needs to f/u on his labs for Hep C (pt has ?sexual intercourse with hep C positive patient on the unit), pt was provided with info of the clinic, was advised to have lab work within 6 months. lab work was done today 08/30/17 Hep C negative Family involvement Follow up on labs, hep C negative Will monitor closely SW evaluation for d/c planning, pt wants to go to rehab Pt was educated about risk/benefits and alternatives of medications, coping strategies (safety plan, suicide prevention), relapse prevention, importance of follow up with psychiatrist and therapist, stay away from drugs/alcohol/smoking Medication Change: Yes (zyprexa increaed) Medical Record Reviewed: Yes Consults ordered or reviewed: medical consult appreciated Goal/Treatment Plan - Goal/Treatment Plan Need for Continued Stay: Remain at risks for inpatient hospitalization, Severe depression anxiety, Discharge may exacerbated symptoms, Severe functional impairment Estimated Date of D/C: 09/03/17
[2017-08-31] MEDS: Pantoprazole 40 mg EC Tab PO SCH (06:25)
[2017-08-31] MEDS: Multivitamin With Minerals Tab PO SCH (08:36)
[2017-08-31] MEDS: OLANZapine 5 mg Disintegrating Tab PO SCH (11:09)
--- NOTE | 2017-08-31 17:22 | PCM.PYCHDC ---
Mental Status Examination - Mental Status Examination Orientation: Person, Place, Situation Memory: Impaired Mood: Neutral Affect: Constricted Attention: Poor Concentration: Poor Association: Loose Fund of Knowledge: Poor Formal Thought Process: Hallucinations, Delusions, Paranoia, Loosening of associations Description of patient's judgement and insight: Improving, but still poor Psychotic Thoughts and Behaviors: patient still has disorganized thoughts and behavior Suicidal Ideation: No Current Homicidal Ideation?: No Plan: patient denied Discharge Summary - Discharge Note Reason for Hospitalization: patient was transferred from [facility] for evaluation of psychotic symptoms, command type hallucinations, suicidal ideation with a plan to jump off the bridge,patient is substance abuser, cocaine use disorder, was noncompliant with the medications. Laboratory Data: Abnormal Lab Results 08/30/17 09:10 HIV 1&2 Ag/Ab, 4th Gen Nonreactive Consultations:: List each consultation separately and include: 1. Reason for request. 2. Findings. 3. Follow-up Consultations: medical consult appreciated patient has questionable sexual encounter with hepatitis C-positive patient, patient is to be followed up with primary care physician follow-up appointment was scheduled by social work assistant patient was educated about the importance to follow up with the lab work, patient verbalized understanding. Summary of Hospital Course include:: 1. Description of specific treatment plan utilized for patients during their course of treatmen. 2. Summarize the time- course for resolution of acute symptoms and/or regressed behaviors. 3. Describe issues identified and worked on during hospitalization. 4. Describe medication utilized. 5. Describe medical problems identified and treated. 6. Reassessment of suicide risk Summary of Hospital Course: Shortly patient is 50 year old male, reported history of schizophrenia , patient came to the [facility] complaining of auditory hallucinations, command type, telling patient to jump off the bridge, patient also admitted to use cocaine, was not compliant with the psychotropic medication for past 2 months, was not able to contract for safety. Due to the severity of patients symptoms and, suicidal ideation, disorganized behavior, pt could not be maintained as outpatient setting, needs further evaluation and stabilization in acute psychiatric unit. Stress: pt lost his job Personal hygiene poor, ADLS: acceptable. Psychosis: patient reported to hear voices, type telling him to kill himself by jumping off the bridge. Depression: patient reported being depressed, hopeless helpless, worthless and guilty. Suicidal thoughts/plans/intent: pt contracted for safety Trena: irritability is very obvious. pt presented to be withdrawn, sedated with psychomotor retardation. Substance abuse: patient has alcohol use disorder, alcohol level was more than 200 at [facility], urine drug screen was positive for cocaine. Alcohol Smoking: counseling provided, nicotine patch offered Smoking Cessation Counseling: The patient was counseled as to the multiple risks to his/her health from continued use of tobacco products. It was explained that continuing to smoke may lead to multiple short and detention negative health consequences, including but not limited to mouth/esophageal /lung cancer, COPD, and heart disease. He/she states he/she understands these risks, and also understands the options and resources available to him/her to help him/her stop smoking. Nicotine replacement therapy, local hotlines, and local resources were discussed as viable options for helping him/her stop his/her tobacco use. The total time spent counseling the patient regarding tobacco cessation was 3 minutes Access to the weapons: as per [facility] report pt said "Having a licence for a gun", when was asked about it, pt seems to be surprised, said "me? gun?, no I don't have any guns". Past psychiatric h/o: , medication noncompliance, terroristic threats, possible antisocial traits. pt was on zyprexa 10mg po bid, zoloft 200mg daily, trazodone 50mg hs. prior h/o incarcerations, strong antisocial traits. Hospitalization: Suicidal attempts: self reported history of suicidal attempts by laceration of wrist, but no old scars for noted at this time. Medical h/o: Family h/o: grandmother has h/o mental illness, male cousin committed suicide by hanging. Social h/o: Treatment goals: Labs: 08/28/17 08/28/17 08:15 08:15 Fasting Glucose 93 Triglycerides 102 Cholesterol 179 LDL Cholesterol Direct 110 HDL Cholesterol 55 Free T4 0.71 L TSH 3rd Generation 1.13 Vital Signs Temp Pulse Resp BP Pulse Ox 08/28/17 06:45 97.6 F 71 20 108/61 08/27/17 16:30 98.3 F 75 18 93/60 L 94 L 08/27/17 14:27 98.1 F 73 18 93/53 L 94 L patient is still psychotic, disorganized, needs further evaluation and stabilization, patient was accepted by [facility] patient will be transferred there today. reatment plan: over the course of this hospitalization patient was started on antipsychotic medications Zyprexa 5 mg at the morning time at the nighttime for psychosis meds for possible alcohol withdrawals (atvan scheduled and prn, mvi, thiamine and folic acid) trazodone 50 mg at the nighttime as needed for insomnia as well as depression vistaril and benadryl for possible EPS PRN meds (Geodon and Benadryl for agitation) patient had ? sexual encounter with Hep C positive patient while in the unit, labs checked pt is negative for Hep C but pt needs to be f/u with clinic to follow up on the status of the pt. [facility] with Sofy. Pt to follow up on October 11, 2017 at 10:40am, pt is aware of the plan. SW evaluation for d/c planning, pt wants to go to rehab - Diagnosis (1) Polysubstance abuse Current Visit: Yes Status: Acute Priority: High (2) Antisocial personality disorder Current Visit: Yes Status: Chronic Priority: Medium (3) Schizophrenia Current Visit: Yes Status: Chronic Priority: High - Final Diagnosis (DSM 5) Condition upon Discharge: STABLE Disposition: DISCHARGE TO [facility] Follow-up Treatment Plan: patient will be transferred to [facility] today over the course of this hospitalization patient was started on antipsychotic medications Zyprexa 5 mg at the morning time at the nighttime for psychosis, with the plan to titrate it up meds for possible alcohol withdrawals (atvan scheduled and prn, mvi, thiamine and folic acid) trazodone 50 mg at the nighttime as needed for insomnia as well as depression vistaril and benadryl for possible EPS PRN meds (Geodon and Benadryl for agitation) patient had ? sexual encounter with Hep C positive patient while in the unit, labs checked pt is negative for Hep C but pt needs to be f/u with clinic to follow up on the status of the pt. [facility] with Sofy. Pt to follow up on October 11, 2017 at 10:40am, pt is aware of the plan. SW evaluation for d/c planning, pt wants to go to rehab - Smoking Cessation Smoking Cessation Medication prescribed: Yes - Antipsychotic Medications Pt discharged on 2 or more routine antipsychotic medications: No
[2017-08-31] MEDS ORDERED: Influenza Vaccine 60 mcg/0.5 mL SYR (4YR UP) IM ONE (17:57)
[2017-08-31 20:32] VITALS: BP 111/69; PULSE 69
== END 2017-08-31 21:40 | DRG 885 ==
LOC: ED 14:21 → ERH 14:27 → PSYC 16:00
PROVIDERS: ADMIT Psychiatry & Neurology Psychiatry; ATTEND Psychiatry & Neurology Psychiatry
PROC: GZ3ZZZZ Medication Management (ICD-10-PCS; principal; 2017-08-27)
DX: F20.9 Schizophrenia, unspecified (principal); F60.2 Antisocial personality disorder; F19.10 Other psychoactive substance abuse, uncomplicated; R45.851 Suicidal ideations; Z91.14 Patient's other noncompliance with medication regimen; F14.10 Cocaine abuse, uncomplicated; F17.210 Nicotine dependence, cigarettes, uncomplicated; F32.9 Major depressive disorder, single episode, unspecified; G47.00 Insomnia, unspecified